=== PATIENT | female | born 1985 | race Caucasian/White ===

== ENCOUNTER 2019-06-14 13:48 | Emergency (ER) | payer OTHER ==
[2019-06-14 13:56] VITALS: BP 132/90
[2019-06-14] MEDS ORDERED: NORMAL SALINE 1000 ML 1,000 ML IV ONE (14:24)
[2019-06-14] MEDS ORDERED: ONDANSETRON HCL INJ/PF 4 MG/2 ML SDV IV ONE (14:26)
--- NOTE | 2019-06-14 14:28 | ER Document Report ---
ED Medical Screen (RME) - General Chief Complaint: Flank Pain Stated Complaint: FLANK PAIN Time Seen by Provider: 06/14/19 14:20 Primary Care Provider: HEALTH,EMPLOYEE [Primary Care Provider] - Follow up as needed Mode of Arrival: Ambulatory Information source: Patient Notes: 34-year-old female presented to ED for complaint of left flank and back pain. She states she has a history of kidney stones and she feels like she has a kidney stone now. States she was having some pain yesterday but is much worse now. She states she just urinated and there was blood in the urine and she does not think that is from her recent menstrual cycle. 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 I have greeted and performed a rapid initial assessment of this patient. A comprehensive ED assessment and evaluation of the patient, analysis of test results and completion of medical decision making process will be conducted by an additional ED providers. TRAVEL OUTSIDE OF THE [place] IN LAST 30 DAYS: No - Related Data Allergies/Adverse Reactions: Penicillins Allergy (Verified 06/14/19 13:51) Past Medical History - Social History Frequency of alcohol use: None Drug Abuse: None Past Surgical History: Reports: Hx Section Physical Exam - Vital signs Vitals: Temp Pulse Resp BP Pulse Ox 97.5 F 94 18 132/90 H 100 06/14/19 13:53 06/14/19 13:53 06/14/19 13:53 06/14/19 13:53 06/14/19 13:53 Course - Vital Signs Vital signs: Temp Pulse Resp BP Pulse Ox 97.5 F 94 18 132/90 H 100 06/14/19 13:53 06/14/19 13:53 06/14/19 13:53 06/14/19 13:53 06/14/19 13:53 Doctor's Discharge - Discharge Referrals: HEALTH,EMPLOYEE [Primary Care Provider] - Follow up as needed
[2019-06-14] MEDS ORDERED: ONDANSETRON HCL INJ/PF 4 MG/2 ML SDV ONE (14:54)
[2019-06-14] MEDS ORDERED: TAMSULOSIN HCL 0.4 MG CAP.SR.24H PO ONE ×2 (15:01→16:00)
[2019-06-14] MEDS ORDERED: FENTANYL CITRATE INJ/PF 100 MCG/2 ML AMPUL IV ONE (15:01)
[2019-06-14] MEDS ORDERED: FENTANYL CITRATE INJ/PF 100 MCG/2 ML AMPUL ONE (15:06)
--- NOTE | 2019-06-14 15:07 | ER Document Report ---
ED General - General Chief Complaint: Flank Pain Stated Complaint: FLANK PAIN Time Seen by Provider: 06/14/19 14:20 Primary Care Provider: UROLOGY [Provider Group] - Follow up in 1 week Mode of Arrival: Ambulatory Information source: Patient Notes: 34-year-old female presents emergency department with complaints of left-sided flank pain. She reports she woke up this morning noted blood in her urine. She also reports she had some low back pain all day. Recently this afternoon she started having some left-sided flank pain. Patient does have a history of endometriosis kidney stones and a right ovarian cyst. She is scheduled for surgery Thursday at [facility] for the ovarian cyst. She also complains of extreme nausea. She denies fever and diarrhea. Reports a little bit of burning after she voided this afternoon. Reports she has an IUD and just had a ultrasound last week at [facility] no she is not . Patient reports she took Toradol prior to arrival in the emergency department approximately 1 hour ago relief of symptoms. Patient is very concerned about timeframe. 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 TRAVEL OUTSIDE OF THE [place] IN LAST 30 DAYS: No - HPI Onset: This morning Onset/Duration: Persistent Quality of pain: Sharp Severity: Severe Pain Level: 3 Associated symptoms: Nausea, Vomiting Exacerbated by: Denies Relieved by: Denies Similar symptoms previously: Yes Recently seen / treated by doctor: No - Related Data Allergies/Adverse Reactions: Penicillins Allergy (Verified 06/14/19 13:51) Past Medical History - General Information source: Patient Last Menstrual Period: IUD - Social History Smoking Status: Never Smoker Frequency of alcohol use: None Drug Abuse: None Occupation: Formerly [employer] Lives with: Family Family History: None Patient has suicidal ideation: No Patient has homicidal ideation: No Renal/ Medical History: Reports: Hx Kidney Stones, Hx Ovarian Cysts, Other - endometreosis Past Surgical History: Reports: Hx Section - Immunizations Immunizations up to date: Yes Review of Systems - Review of Systems Notes: Review HPI for review of systems., All other systems negative Physical Exam - Vital signs Vitals: Temp Pulse Resp BP Pulse Ox 97.5 F 94 18 132/90 H 100 06/14/19 13:53 06/14/19 13:53 06/14/19 13:53 06/14/19 13:53 06/14/19 13:53 - General General appearance: Alert, Anxious In distress: Mild - HEENT Head: Normocephalic, Atraumatic Eyes: Normal Conjunctiva: Normal Extraocular movements intact: Yes Neck: Normal, Supple. No: Lymphadenopathy - Respiratory Respiratory status: No respiratory distress Chest status: Nontender Breath sounds: Normal Chest palpation: Normal - Cardiovascular Rhythm: Regular Heart sounds: Normal auscultation Murmur: No - Back Back: CVA tenderness - left - Extremities General upper extremity: Normal ROM General lower extremity: Normal ROM - Neurological Neuro grossly intact: Yes Cognition: Normal Orientation: AAOx4 Ermias Coma Scale Eye Opening: Spontaneous [place] Coma Scale Verbal: Oriented [place] Coma Scale Motor: Obeys Commands [place] Coma Scale Total: 15 Speech: Normal - Psychological Associated symptoms: Normal affect, Normal mood - Skin Skin Temperature: Warm Skin Moisture: Dry Skin Color: Normal Course - Re-evaluation Re-evalutation: 06/14/19 15:50 This 34-year-old female presents emergency department with complaints of left- sided flank pain that started this morning increased throughout her day. Patient reports she has a history of kidney stones and endometreosis. Patient reports she has to pickling solution maker her kids is declining labs urine. Reports she knows she has a kidney stone. Patient took Toradol prior to arrival. Patient reports she is to pickling solution maker her kids by 430. She agreed to fentanyl for the pain. Patient was instructed that we will do the CT but if it does not show a kidney stone that we would need to do labs and a urine to evaluate further. She agrees to plan of care. Patient is feeling better reports fentanyl took the edge off. No further vomiting. 06/14/19 16:15 CT results shows 3 mm kidney stone, reports she feels better no further vomiting. Reports no pain. Discussed plan of care. She would like to be discharged home she reports she is to take care of her kids. She will be treated with Flomax Percocet for the pain. And Zofran for the nausea. She was instructed to follow-up with a urologist. She reports that she did have a referral to the urology and she did note. She also reports she will be having surgery for an ovarian cyst next week. No labs done due to patient's insistence that the pain is due to a kidney stone and she just needs to be treated and go home. Abdomen/Pelvis CT 06/14/19 00:00 IMPRESSION: Left hydronephrosis secondary to a 3 mm calculus at the UPJ. Small intrarenal calculi bilaterally. 06/14/19 18:28 Dictation of this chart was performed using voice recognition software; therefore, there may be some unintended grammatical errors. - Vital Signs Vital signs: Temp Pulse Resp BP Pulse Ox 97.5 F 94 18 132/90 H 100 06/14/19 13:53 06/14/19 13:53 06/14/19 13:53 06/14/19 13:53 06/14/19 13:53 - Diagnostic Test Radiology reviewed: Image reviewed, Reports reviewed Discharge - Discharge Clinical Impression: Flank pain, Kidney stone Condition: Stable Disposition: HOME, SELF-CARE Instructions: Antinausea Medication ([facility]), Flomax ([facility]), Intravenous (IV) Fluids ([facility]), Kidney Stone ([facility]), Oral Narcotic Medication ([facility]), Pain Medication Injection ([facility]) Additional Instructions: *You have been evaluated for flank pain, kidney stone *Take medication as prescribed *Follow up with your primary care provider within one week for referral to urologist *Push fluids, avoid sweet tea, mountain dew *Return to ED for worsening condition, changes, needs, fever, increase in pain *Return to ED if not better in 24 hours Monitor your blood pressure. Your blood pressure was elevated today. This may be because you were anxious, in pain or because you need medication. It is important to follow up with your primary care provider for full evaluation. Prescriptions: Tamsulosin HCl [Flomax 0.4 mg Cap.sr] 0.4 mg PO DAILY #7 cap.sr.24h Oxycodone HCl/Acetaminophen [Percocet 5-325 mg Tablet] 1 tab PO ASDIR PRN #15 tablet PRN Reason: Ondansetron [Zofran Odt 4 mg Tablet] 1 - 2 tab PO Q4H #10 tab.rapdis Forms: Elevated Blood Pressure, Return to Work Referrals: UROLOGY [Provider Group] - Follow up in 1 week
--- NOTE | 2019-06-14 15:55 | RADIOLOGY REPORT (SQ) ---
EXAM DESCRIPTION: CT ABD/PELVIS NO ORAL OR IV COMPLETED DATE/TIME: 06/14/2019 3:27 pm REASON FOR STUDY: FLANK PAIN COMPARISON: None. TECHNIQUE: CT scan of the abdomen and pelvis performed without intravenous or oral contrast. Images reviewed with lung, soft tissue, and bone windows. Reconstructed coronal and sagittal MPR images revi ewed. All images stored on PACS. All CT scanners at this facility use dose modulation, iterative reconstruction, and/or weight based d osing when appropriate to reduce radiation dose to as low as reasonably achievable (ALARA). [facility]: Dose Right [facility]: CareDose [facility]: Dose Right [facility]: Teradose 4D [facility]: Smart PROFICIO RADIATION DOSE: CT Rad equipment meets quality standard of care and radiation dose reduction techniq ues were employed. CTDIvol: 6.5 mGy. DLP: 356 mGy-cm.mGy. LIMITATIONS: None. FINDINGS: LOWER CHEST: No significant findings. No nodules or infiltrates. NON-CONTRASTED LIVER, SPLEEN, ADRENALS: Evaluation limited by lack of IV contrast. No identified sign ificant masses. PANCREAS: No masses. No peripancreatic inflammatory changes. GALLBLADDER: No identified stones by CT criteria. No inflammatory changes to suggest cholecystitis. RIGHT KIDNEY AND URETER: No suspicious masses. Assessment limited by lack of IV contrast. Nonobstru cting lower calyceal calculus. No hydronephrosis or hydroureter. LEFT KIDNEY AND URETER: No suspicious masses. Assessment limited by lack of IV contrast. There are a couple of tiny intrarenal calculi. 3 mm calculus at the UPJ. Left hydronephrosis. AORTA AND RETROPERITONEUM: No aneurysm. No retroperitoneal masses or adenopathy. BOWEL AND PERITONEAL CAVITY: No obvious masses or inflammatory changes. No free fluid. APPENDIX: Normal. PELVIS, BLADDER, AND ABDOMINAL WALL:No abnormal masses. No free fluid. Bladder normal. BONES: No significant findings. OTHER: No other significant finding. IMPRESSION: Left hydronephrosis secondary to a 3 mm calculus at the UPJ. Small intrarenal calculi b ilaterally. COMMENT: Quality ID # [id number]: Final reports with documentation of one or more dose reduction techniques (e.g., Automated exposure control, adjustment of the mA and/or kV according to patient size, use of iterative reconstruction technique) TECHNICAL DOCUMENTATION: JOB ID: [id number] 5135[employer]- All Rights Reserved Reading location - IP/workstation name: [email or web address]
== END 2019-06-14 16:27 | disposition home or self-care (01) ==
LOC: ER 13:48
DX: N20.0 Calculus of kidney (principal); R10.9 Unspecified abdominal pain; Z97.5 Presence of (intrauterine) contraceptive device; Z88.0 Allergy status to penicillin
CPT/HCPCS: 99284; 96374; 96375; 74176; J3010; J2405

== ENCOUNTER 2019-06-15 04:19 | Emergency (ER) | payer OTHER ==
[2019-06-15] MEDS ORDERED: HYDROMORPHONE HCL INJ/PF 2 MG/ML AMPULE IV ONE ×2 (04:44→05:41)
[2019-06-15] MEDS ORDERED: NORMAL SALINE 1000 ML 1,000 ML IV ONE ×2 (04:44→05:59)
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
[2019-06-15 05:18] LABS: ABSOLUTE BASOPHILS # (AUTO) 0.1 10^3/uL (0.0-0.2); ABSOLUTE LYMPHOCYTES (AUTO) 0.9 10^3/uL (0.5-4.7); ABSOLUTE MONOCYTES (AUTO) 0.7 10^3/uL (0.1-1.4); BASOPHILS % (AUTO) 0.5 % (0-2); EOSINOPHILS % (AUTO) 0.3 % (0-6); HEMATOCRIT 38.6 % (36.0-47.0); HEMOGLOBIN 13.1 g/dL (12.0-15.5); LYMPHOCYTES % (AUTO) 7.3 % (13-45); MEAN CORPUSCULAR HEMOGLOBIN 29.6 pg (27.0-33.4); MEAN CORPUSCULAR HGB CONC 34.1 g/dL (32.0-36.0); MEAN CORPUSCULAR VOLUME 87 fl (80-97); MONOCYTES % (AUTO) 5.4 % (3-13); PLATELET COUNT 219 10^3/uL (150-450); RED BLOOD COUNT 4.44 10^6/uL (3.72-5.28); RED CELL DISTRIBUTION WIDTH 13.6 % (11.5-14.0); SEGMENTED NEUTROPHILS % (AUTO) 86.5 % (42-78); TOTAL CELLS COUNTED % (AUTO) 100 %; WHITE BLOOD COUNT 12.7 10^3/uL (4.0-10.5)
[2019-06-15 05:25] LABS: APPEARANCE,URINE SLIGHTLY-CLOUDY; BILIRUBIN,URINE NEGATIVE (NEGATIVE); COLOR,URINE YELLOW; GLUCOSE, URINE NEGATIVE (NEGATIVE); KETONES,URINE 20 mg/dL (NEGATIVE); LEUKOCYTE ESTERASE,URINE NEGATIVE (NEGATIVE); NITRITE,URINE NEGATIVE (NEGATIVE); PROTEIN,URINE NEGATIVE (NEGATIVE); URINE SPECIFIC GRAVITY 1.027; UROBILINOGEN,URINE NEGATIVE mg/dL (<2.0)
[2019-06-15 05:39] LABS: ANION GAP 8 (5-19); BLOOD UREA NITROGEN 20 mg/dL (7-20); CARBON DIOXIDE 26 mmol/L (22-30); CHLORIDE 107 mmol/L (98-107); GLUCOSE 93 mg/dL (75-110); POTASSIUM 3.9 mmol/L (3.6-5.0)
[2019-06-15] MEDS ORDERED: DIPHENHYDRAMINE HCL 50 MG/ML VIAL IV ONE (05:41)
[2019-06-15] MEDS ORDERED: METOCLOPRAMIDE HCL INJ/PF 10 MG/2 ML SDV IV ONE (06:00)
[2019-06-15 07:23] VITALS: BP 110/72
== END 2019-06-15 07:33 | disposition home or self-care (01) ==
LOC: ER 04:19
DX: R10.9 Unspecified abdominal pain (principal); R11.2 Nausea with vomiting, unspecified; D72.828 Other elevated white blood cell count; R31.9 Hematuria, unspecified; N83.201 Unspecified ovarian cyst, right side; Z88.0 Allergy status to penicillin
CPT/HCPCS: 96376; 99284; 96361; 96374; 96375; 36415; 85025; 81025; 80048; 81001; J1200; J2765; J1170; J7030

== ENCOUNTER → 2020-08-09 | Outpatient (CLI) | payer BC, OTHER ==
[2020-08-09 12:58] VITALS: BP 105/65
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
[2020-08-09 14:44] LABS: A TYPE INFLUENZA AG NEGATIVE (NEGATIVE); B INFLUENZA AG NEGATIVE (NEGATIVE)
== END ==
LOC: RDC 12:32
PROVIDERS: ATTEND Registered Nurse
DX: Z20.828 Contact with and (suspected) exposure to other viral communicable diseases (principal); R11.2 Nausea with vomiting, unspecified; R19.7 Diarrhea, unspecified
CPT/HCPCS: 87070; 87880; 87804; U0003; C9803; 87635

== ENCOUNTER → 2020-09-27 | Outpatient (CLI) | payer BC, OTHER | LOC: LAB 13:23 | PROVIDERS: ATTEND Nurse Practitioner Family | DX: Z11.1 Encounter for screening for respiratory tuberculosis (principal) | CPT/HCPCS: 36415; 86480 ==

== ENCOUNTER → 2020-10-11 | Outpatient (CLI) | payer BC, OTHER ==
[~2020-10-11] MED LIST: COVID-19 VACCINE (PFIZER)/PF 30 MCG/0.3 ML VIAL IM ONE; EPINEPHRINE INJ/PF 1 MG/1 ML AMPULE IM PRN
== END ==
LOC: EMPHEALTH 08:13
PROVIDERS: ATTEND Internal Medicine
DX: Z23 Encounter for immunization (principal)
CPT/HCPCS: 91300

== ENCOUNTER → 2020-11-01 | Outpatient (CLI) | payer BC, OTHER ==
--- OUTSIDE RECORDS SUMMARY | 2020-11-01 08:31 | XMS REPORT ---
:1985 Author Organization [facility] Address [facility] [address] [place] [address] Care Team Providers Name Role Phone Unavailable Unavailable Unavailable Allergies, Adverse Reactions, Alerts Allergy Name Allergy Status Severity Reaction(s) Onset Inactive Treat ing Comments Type Date Date Clinician PENICILLINS Miscellaneo Active Unknown Rash 2019-10 allergy 11-12 00:00: 00 Penicillins Allergy to Active substance Medications Ordered Filled Start Stop Current Ordering Indication Dosage Frequency Signature Comments Components Medication Medication Date Date Medication? Clinician (SIG) Name Name rizatriptan No 1 rizatripta 10 mg n 10 mg disintegrat disintegra ing tablet ting Take 1 tablet tablet as Take 1 needed by tablet as oral route needed by for 90 oral route days. for 90 days. bupropion No 1 Q1D bupropion HCl SR 150 HCl SR 150 mg mg tablet,12 tablet,12 hr hr sustained-r sustained- elease Take release 1 tablet Take 1 every day tablet by oral every day route for by oral 90 days. route for 90 days. Problems Condition Condition Condition Status Onset Resolution Last Treatin g Comments Name Details Category Date Date Treatment Clinician Date Migraine Migraine Problem Active 07-05 00:00: 00 Procedures Procedure Date / Time Performed Performing Clinician Venessa spaulding Tonsillectomy Caesarean Section Results Test Description Test Time Test Comments Text Results Atomic Results Result Comments SARS-CoV-2 RNA Resp Ql ARSLAN+probe 2020-08-11 00:00:00 Test Item Value Reference Range Comments SARS-CoV-2 RNA Resp Ql ARSLAN+probe Not detected [facility] Case ID: (test code = [id number]) [id number] Assessments Condition Name Status Diagnosis Date Treating Clinici an 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 Immunizations Ordered Immunization Filled Immunization Date Status Commen ts Refusal Reason Name Name influenza, 2019-06-12 Completed injectable, 00:00:00 quadrivalent Social History Smoking Status Start Date Stop Date Never Smoker Vital Signs Vital Name Observation Time Observation Value Comments Height 2019-07-05 00:00:00 63 [in_i] BMI (Body Mass Index) 2019-07-05 00:00:00 24.8 kg/m2 Body Weight 2019-07-05 00:00:00 140 [lb_av] Hospital Discharge Instructions 1. Ptotic breast Discussion Note: None recorded. Patient educational handouts: No information available.
[2020-11-01 08:58] VITALS: BP 116/71
== END ==
LOC: EMPHEALTH 08:15
PROVIDERS: ATTEND Internal Medicine
DX: Z23 Encounter for immunization (principal)
CPT/HCPCS: 91300